=== PATIENT | male | born 1940 | race Caucasian/White ===

== ENCOUNTER 2019-04-13 06:31 | Day surgery (SDC) | payer OTHER, SELFPAY ==
[2019-04-08 14:34] VITALS: BMI 25.0
[2019-04-13] VITALS (12 sets, daily range): BP systolic 91–125; BP diastolic 51–81; PULSE 60–63; RESP 10–19; TEMP 35.9–36.7; O2SAT 94–99; BMI 25.0
[2019-04-13] MEDS: LACTATED RINGERS 1,000 ML 42 ML IV (07:29)
[2019-04-13] MEDS: ACETAMINOPHEN 325 MG TABLET 975 MG PO (07:37)
[2019-04-13] MEDS: GABAPENTIN 300 MG CAPSULE PO (07:38)
--- NOTE | 2019-04-13 07:50 | PM.HP.1 ---
History of Present Illness History of Present Illness Date Patient Seen: 04/13/19 Time Patient Seen: 07:50 Chief complaint: [id number] Narrative: Pt seen and examined unchanged since recent clinic note Cleared by cards EF improved to 50% Tolerates daily walk of several miles, brisk plan for lap B inguinal hernia repair Patient History Medical History (Updated 04/08/19 @ 14:38 by Celia Galdamez RN) CHF (congestive heart failure) (Chronic) Former smoker (Acute) HLD (hyperlipidemia) (Acute) HTN (hypertension) (Acute) Shortness of breath (Acute) Sleep apnea (Acute) Surgical History (Updated 04/08/19 @ 14:38 by Celia Galdamez RN) Hx of tonsillectomy (Acute) 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) Family History (Updated 12/21/18 @ 11:42 by Hawa Pandey RN) Mother Stroke Grandmother Heart disease Grandfather Heart disease Social History (Updated 12/21/18 @ 11:44 by Hawa Pandey RN) marital status: household members: spouse occupational status: previously employed Smoking Status: Former smoker alcohol intake: former substance use type: does not use Family & Social History Family History (Updated 12/21/18 @ 11:42 by Hawa Pandey RN) Mother Stroke Grandmother Heart disease Grandfather Heart disease Social History: household members spouse Tobacco & Substance use: Tobacco type cigarettes,pipe Smoking Status Former smoker alcohol intake former Substance Use Type does not use Meds Home Medications and Allergies Home Medications Medication Instructions Recorded Confirmed Type aspirin 81 mg PO QDAY #0 05/13/17 04/08/19 History atorvastatin 40 mg PO QDAY #0 05/13/17 04/08/19 History cyanocobalamin (vitamin B-12) 1,000 mcg PO QDAY #0 05/13/17 04/08/19 History multivitamin [Multiple Vitamins] 1 tab PO QDAY #0 05/13/17 04/08/19 History eplerenone 25 mg tablet 25 mg PO DAILY 12/21/18 04/08/19 History metoprolol succinate 25 mg PO DAILY 04/08/19 04/13/19 History sacubitril-valsartan [Entresto] 1 tab PO BID 04/08/19 04/08/19 History Allergies Allergy/AdvReac Type Severity Reaction Status Date / Time propofol [PROPOFOL] Allergy Unknown Dysphagia Unverified 04/13/19 07:34 spironolactone Allergy Unknown Itching Verified 04/13/19 07:34 Sulfa (Sulfonamide Allergy Unknown Hives Unverified 04/13/19 07:34 Antibiotics) [SULFA (SULFONAMIDE ANTIBIOTICS)] Exam Vital Signs (past 8 hours): - 04/13/19 07:10 Temperature 97.4 F L Pulse Rate 60 Respiratory Rate 16 Blood Pressure 125/81 Pulse Oximetry 98 Oxygen Delivery Method Room Air
[2019-04-13] MEDS: CEFAZOLIN 2 GM/100 ML FROZ.PIGGY IV (08:00)
--- NOTE | 2019-04-13 08:31 | SUR.OPER ---
Supine on padded OR bed with pink pad, head on pillow, arm padded and tucked at side, legs uncrossed, safety belt at thigh, tape over blanket over lower legs .
[2019-04-13] MEDS: BUPIVACAINE 0.25% W/ EPI 30 ML VIAL INJ (08:38)
--- NOTE | 2019-04-13 10:28 | PM.OP.1 ---
Operative Date/Time/Diagnoses Date of procedure: 04/13/19 Time of procedure: 10:28 Pre-op diagnosis: bilateral inguinal hernias Post-op diagnosis: other (Bilateral indirect inguinal hernias) Procedure & Clinicians Procedure: Bilateral laproscopic inguinal hernia repair with mesh (TEP) Same procedure as scheduled: Yes Indications: 78-year-old man with symptomatic bilateral inguinal hernias Surgeon: Sung Torres Click Yes if Unassisted: Yes Anesthesia Type: General Operative Notes Findings: Bilateral indirect hernias Closure Type: primary Specimen(s): none sent Prosthetic devices, grafts, tissues, transplants, or devices: [employer]rica 3DMax regular weight polypropylene size large mesh -right and left respectively Estimated Blood Loss (mL): 10 Procedure in detail: Patient was brought to the operating room he was intubated without incident he was prepped and draped in usual sterile fashion time-out was completed. A curvilinear incision was carried through the inferior umbilical crown through the skin and subcutaneous tissues the fatty alveolar tissue was swept off the rectus sheath on the right side. Just to the right of midline a vertically oriented incision was carried through the anterior rectus sheath. The underlying rectus abdominis muscles were identified and swept out laterally using an S retractor -a finger was then inserted into the retro rectus space developing a pocket deep to the rectus muscle but superficial to the posterior rectus sheath. Into the space a 12 mm balloon tipped port was placed. And the space was insufflated. Utilizing a laparoscoped a pocket was developed progressing inferiorly to the pubic symphysis. Two 5 mm ports were then placed approximately 2 fingerbreadths apart equal distance between the pubic symphysis and the umbilicus. These were placed into the developed space. Using laparoscopic graspers preperitoneal space was then opened more significantly. I 1st started on the right side in the foreground opening up the more superior aspect of this space to allow for greater visualization I then proceeded to open up the inferior aspect of beginning along Seth's ligaments and progressing laterally. I then moved for laterally and opened up the space between the anterior superior iliac spine and the cord structures. The anterior medial hernia sac was identified and reduced being careful to preserve the vas deferens as well as the cord structures. The peritoneal reflection was then brought posterior into the field stripping it off the underlying tissue once the edge of the peritoneal reflection was well below the dissection plane I felt satisfied. The entire myopectineal orifice at this point was visualized. There was no direct or femoral hernia. Hemostasis was excellent. I then directed my attention to the left side and identical manner opened up the preperitoneal space. Again the hernia was indirect and reduced. With both spaces now widely opened and the peritoneal reflection well posterior mesh was brought into the space. Beginning with the left side a Bard 3D max size large polypropylene hernia mesh was rolled and then inserted via the 12 mm umbilical port. this was then unrolled internally and opened the medial aspect was oriented to the midline. The mesh was placed so as to well cover the internal ring was well as cover the site where a direct hernia could develop in the future. The medial aspect of the mesh was tacked using absorbable tacks to Seth's ligament. The right-sided hernia mesh was then brought into the space in an identical fashion it was opened in similarly tacked. Both sides were then carefully inspected to ensure that the mesh was not unduly wrinkled and well placed. At this point laparoscopic graspers were utilized to hold the lateral tails in place and then the space was deinsufflated. Ports were then withdrawn -the umbilical anterior fascial defect was then closed using a simple continual running 0 Vicryl suture. Skin was closed using monofilament absorbable suture in a subcuticular fashion. Skin glue was applied Patient was extubated and brought to PACU without incident Complications: none Post-operative Condition: stable Disposition: PACU Plan for aftercare: PACU then
== END 2019-04-13 11:57 | disposition home or self-care (01) ==
PROVIDERS: PCP Family Medicine; Visit Provider Surgery
PROC: 0YQ64ZZ Repair Left Inguinal Region, Percutaneous Endoscopic Approach (ICD-10-PCS; CPT 49650; principal; 2019-04-13 07:45)
DX: K40.20 Bilateral inguinal hernia, without obstruction or gangrene, not specified as recurrent (principal); I50.9 Heart failure, unspecified; Z87.891 Personal history of nicotine dependence; E78.5 Hyperlipidemia, unspecified; I10 Essential (primary) hypertension; G47.30 Sleep apnea, unspecified
CPT/HCPCS: 49650; C1781; J0330; J0690; J1100; J1885; J2405; J3010

== ENCOUNTER → 2019-08-23 10:27 | Outpatient (CLI) | payer OTHER, SELFPAY ==
--- NOTE | 2019-08-23 | DI.RAD.S_ITS ---
PROCEDURE: XR CHEST 2V INDICATIONS: COUGH/CHF TECHNIQUE: 2 views of the chest were acquired. COMPARISON: None. FINDINGS: Surgical changes and devices: Dual-lead cardiac pacer. Lungs and pleura: Lungs are clear. No pleural effusions or pneumothorax. Mediastinum: Mediastinal contours are normal. Heart size is normal. Bones and chest wall: No suspicious bony abnormalities. Soft tissues appear unremarkable. IMPRESSION: Scattered subsegmental atelectasis and/or scarring. No focal consolidation. by: Isaac Perry M.D. on 08/23/2019 at 11:19 Approved by: Isaac Perry M.D. on 08/23/2019 at 11:20
== END ==
PROVIDERS: PCP Family Medicine; Visit Provider Family Medicine
DX: R05 Cough; I50.22 Chronic systolic (congestive) heart failure; Z95.0 Presence of cardiac pacemaker
CPT/HCPCS: 71046

== ENCOUNTER 2020-09-19 19:16 | Emergency (ER) | payer OTHER, SELFPAY ==
[2020-09-19 19:26] VITALS: BP 159/102; PULSE 70; RESP 20; TEMP 36.4; O2SAT 98; BMI 25.0
[2020-09-19 19:36] VITALS: BP 143/87; PULSE 61; RESP 20; O2SAT 99
[2020-09-19 19:43] LABS: Add Manual Diff / Slide Review NO; Basophils Absolute Auto 100 /uL (0-100); Basophils Percent Auto 1.2 % (0-2); Eosinophils Absolute Auto 300 /uL (0-450); Eosinophils Percent Auto 3.5 % (2-4); Hematocrit 45.5 % (41-53); Hemoglobin 15.7 g/dL (13.5-17.5); Lymphocytes Absolute Auto 2700 /uL (1100-4500); Lymphocytes Percent Auto 30.1 % (25-40); Mean Corpuscular HGB Conc 34.4 % (30-36); Mean Corpuscular Hemoglobin 32.5 PG (26-34); Mean Corpuscular Volume 94.3 fL (80-100); Monocytes Absolute Auto 900 /uL (0-900); Neutrophils Absolute Auto 4900 /uL (1500-7000); Neutrophils Percent Auto 55.2 % (50-75); Platelet Count 176 X10^3/uL (150-400); Red Blood Cell Count 4.82 X10^6/uL (4.5-5.9); Red Cell Distribution Width 13.2 % (11.6-14.8); White Blood Cell Count 8.9 X10^3/uL (4.5-11.0)
--- NOTE | 2020-09-19 19:46 | DI.CT.S_ITS ---
PROCEDURE: CT HEAD/BRAIN WO CON INDICATIONS: visual disturbances, symptoms now resolved. TECHNIQUE: Noncontrast 4.5 mm thick angled axial sections acquired from the foramen magnum to the vertex, with coronal and sagittal reformats. For radiation dose reduction, the following was used: automated exposure control, adjustment of mA and/or kV according to patient size. COMPARISON: None. FINDINGS: Image quality: Excellent. CSF spaces: Basal cisterns are patent. No extra-axial fluid collections. The ventricles are symmetric in size and shape. Brain: No acute intracranial hemorrhage or mass effect. There is cerebral volume loss for age, with resultant ventricular and sulcal prominence. There are periventricular and deep white matter chronic small vessel ischemic changes. There is intracranial internal carotid artery atherosclerosis. Skull and face: Calvarium and visualized facial bones appear intact, without suspicious lesions. Sinuses: Visualized sinuses and mastoids are clear. IMPRESSION: No acute intracranial abnormality. Mild chronic age related cerebral atrophy and chronic microvascular ischemic changes. Dictated by: Savage Wright M.D. on 09/19/2020 at 20:31 Approved by: Savage Wright M.D. on 09/19/2020 at 20:33
[2020-09-19 19:48] LABS: Prothrombin Time 11.3 SECONDS (10.1-12.7)
[2020-09-19 19:50] LABS: PTT Partial Thromboplastin Tim 30 SECONDS (26.4-36.2)
[2020-09-19 19:55] LABS: Alanine Aminotransferase 29 IU/L (<50); Albumin 4.3 g/dL (3.5-5.0); Albumin Globulin Ratio 1.4 (1.0-2.8); Alkaline Phosphatase 75 U/L (38-126); Aspartate Aminotransferase 30 IU/L (17-59); BUN Creatinine Ratio 28.9 (6-22); Bilirubin Total 1.3 mg/dL (0.2-1.3); Blood Urea Nitrogen 22 mg/dL (9-20); Calcium 9.4 mg/dL (8.4-10.2); Carbon Dioxide 28 mmol/L (22-32); Chloride 106 mmol/L (98-107); Creatine Kinase 143 U/L (55-170); Estimated Glomerular Filt Rate > 60.0 mL/min (>60); Glucose 113 mg/dL (80-110); HEMOLYSIS 22 (0-50); Sodium 138 mmol/L (137-145); Total Protein 7.3 g/dL (6.3-8.2)
[2020-09-19 20:06] LABS: Troponin I 0.017 ng/mL (0.01-0.034)
[2020-09-19 20:10] LABS: CKMB % Relative Index 2.8 % (1.5-5.0); Creatine Kinase MB 3.94 ng/mL (<2.37)
--- NOTE | 2020-09-19 20:56 | ED.NEUROSD ---
HPI - Neuro Symptoms/Deficit General Chief Complaint: Neuro Symptoms/Deficit Stated Complaint: Visual disturbance Time Seen by Provider: 09/19/20 20:19 Source: patient and family Mode of arrival: Ambulatory Limitations: no limitations History of Present Illness HPI Narrative: Patient is a 80-year-old male who arrived to the emergency department under the recommendation of his Cardiology office for evaluation of symptoms where he states that last evening for approximately 5 minutes he had visual disturbances. He described it as when he was trying to look at an object he thought that the object was moving around. He was not seeing double. He was not having any other associated symptoms. Once the symptoms resolved he was back to his baseline health status. He then stated that overnight he woke up and had the symptoms again but this time it lasted approximately 2 hours and then completely resolved. Again he had no other associated symptoms. He states he does wake up multiple times during the night and he thought that is why he woke up not necessarily because of the vision issues. He has never had anything like this in the past. 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 He is currently asymptomatic. On Anticoagulants: No (ASA 81mg/daily) Related Data Home Medications Medication Instructions Recorded Confirmed aspirin 81 mg PO QDAY #0 05/13/17 04/18/19 atorvastatin 40 mg PO QDAY #0 05/13/17 04/18/19 cyanocobalamin (vitamin B-12) 1,000 mcg PO QDAY #0 05/13/17 04/18/19 multivitamin [Multiple Vitamins] 1 tab PO QDAY #0 05/13/17 04/18/19 eplerenone 25 mg tablet 25 mg PO DAILY 12/21/18 04/18/19 Entresto 1 tab PO BID 04/08/19 04/18/19 metoprolol succinate 25 mg PO DAILY 04/08/19 04/18/19 Previous Rx's Medication Instructions Recorded acetaminophen 650 mg PO Q6H #30 cap 04/13/19 oxycodone See Rx Instructions .ROUTE 04/13/19 .COMPLEX PRN #10 tab polyethylene glycol 3350 [Miralax] 17 gram PO DAILY #10 each 04/13/19 Allergies Allergy/AdvReac Type Severity Reaction Status Date / Time propofol [PROPOFOL] Allergy Unknown Dysphagia Verified 09/19/20 19:33 spironolactone Allergy Unknown Itching Verified 09/19/20 19:33 Sulfa (Sulfonamide Allergy Unknown Hives Verified 09/19/20 19:33 Antibiotics) [SULFA (SULFONAMIDE ANTIBIOTICS)] Review of Systems Constitutional Constitutional: Denies chills, Denies fatigue, Denies fever(s), Denies headache(s), Denies malaise and Denies weakness Eyes Eyes: Denies blurry vision, Reports change in vision, Denies diplopia, Denies floaters, Denies irritation, Denies itchy eyes, Denies loss of vision and Reports other visual disturbances ENT Ears, Nose, Mouth, and Throat: Denies vertigo, Denies dizziness, Denies headache(s), Denies disequilibrium and Denies sinus pressure Cardiovascular Cardiovascular: Denies chest pain, Denies rapid heart rate, Denies lightheadedness and Denies dyspnea Respiratory Respiratory: Denies cough and Denies dyspnea Gastrointestinal Gastrointestinal: Denies abdominal pain, Denies nausea and Denies vomiting Genitourinary Genitourinary: Denies dysuria Genitourinary: Denies dysuria Musculoskeletal Musculoskeletal: Denies arthralgias, Denies myalgias and Denies tingling Integumentary/Breasts Skin/Breast: Denies lesions and Denies rash Neurologic Neurologic: Denies abnormal movements, Denies abnormal speech, Denies behavioral changes, Denies confusion, Denies vertigo, Denies dizziness, Denies headache(s), Denies loss of vision, Reports other visual disturbances, Denies seizure-like activity, Denies tingling, Denies disequilibrium and Denies weakness Psychiatric Psychiatric: Denies behavioral changes and Denies confusion Endocrine Endocrine: Denies fatigue Hematologic/Lymphatic On Anticoagulants: No (ASA 81mg/daily) Allergic/Immunologic Allergic/Immunologic: Denies urticaria and Denies itchy eyes Patient History Medical History CHF (congestive heart failure) Former smoker HLD (hyperlipidemia) HTN (hypertension) Shortness of breath Sleep apnea Surgical History (Updated 04/08/19 @ 14:38 by Celia Galdamez RN) Hx of tonsillectomy ICD (implantable cardioverter-defibrillator) battery depletion (~2017) Family History (Updated 12/21/18 @ 11:42 by Hawa Pandey RN) Mother Stroke Grandmother Heart disease Grandfather Heart disease Social History marital status: household members: spouse occupational status: previously employed Smoking Status: Former smoker alcohol intake: former substance use type: does not use Smoking Status: Former smoker alcohol intake frequency: 0-2 drinks per day Substance Use Type: does not use Exam Initial Vital Signs Initial Vital Signs: Vital Signs Temperature 97.5 F L 09/19/20 19:26 Pulse Rate 70 09/19/20 19:26 Respiratory Rate 20 09/19/20 19:26 Blood Pressure 159/102 H 09/19/20 19:26 Pulse Oximetry 98 09/19/20 19:26 Const General: cooperative, comfortable, well developed and well groomed Limitations: mental status not altered HENMT Head: normal to inspection and normocephalic Eyes General: appearance normal, both eyes and all related structures Eyelids: eyelids normal Conjunctivae: conjunctivae normal Pupils: PERRL EOM: EOM intact bilaterally Resp Effort & Inspection: normal respiratory effort Auscultation: clear to auscultation bilaterally Cardio Rate: regular rate Rhythm: regular rhythm GI Inspection: non-distended Palpation: soft Skin Lesions: no lesions Rashes: no rashes Neuro General: patient alert and patient awake Cognition: normal cognition Speech: speech normal Extrem General: capillary refill normal Psych Appearance: grossly normal and well kempt Scores GCS Dionna coma scale eye opening: Spontaneous [place] coma scale verbal response: Orientated [place] coma scale motor response: Obey commands [place] coma scale total score: 15 NIH Stroke Scale Level of Conciousness: Alert, keenly responsive Ask month/age: Answers both questions correctly. Open/close eyes, close hand: Performs both tasks correctly Best gaze horizontal: Normal Visual patel: No visual loss Facial palsy: Normal symetrical movement Left arm drift: No drift for full 10 sec Right arm drift: No drift for full 10 sec Left leg drift: No drift for full 5 sec Right leg drift: No drift for full 5 sec Limb ataxia: Absent Sensory on face/arms/legs: Normal, no sensory loss Best language: No aphasia, normal Dysarthria: Normal Extinction or inattention: No abnormality Total NIH Stroke scale score: 0 Course Orders Ordered: ED Orders 09/19/20 19:30 Complete Blood Count AUTO DIFF Stat Comprehensive Metabolic Panel Stat Partial Thromboplastin Time Stat Prothrombin Time INR Stat Troponin & CK Cardiac Panel Stat 09/19/20 19:32 EKG-12 Lead Stat 09/19/20 19:46 CT head/brain wo con Stat Vital Signs Vital signs: Vital Signs - 8 hr 09/19/20 19:26 09/19/20 19:36 Temperature 97.5 F L Pulse Rate 70 61 Respiratory Rate 20 20 Blood Pressure 159/102 H 143/87 H Pulse Oximetry 98 99 MDM - Neuro Symptoms/Deficit Medical Records Attestation: I reviewed the patient's medical records. Lab Data Attestation: I reviewed the patient's lab results. Result diagrams: 09/19/20 19:30 09/19/20 19:30 Labs: Lab Results 09/19/20 09/19/20 09/19/20 Range/Units 19:30 19:30 19:30 WBC 8.9 (4.5-11.0) X10^3/uL RBC 4.82 (4.5-5.9) X10^6/uL Hgb 15.7 (13.5-17.5) g/dL Hct 45.5 (41-53) % MCV 94.3 (80-100) fL MCH 32.5 (26-34) PG MCHC 34.4 (30-36) % RDW 13.2 (11.6-14.8) % Plt Count 176 (150-400) X10^3/uL Neut % (Auto) 55.2 (50-75) % Lymph % (Auto) 30.1 (25-40) % Dickenson % (Auto) 10.0 (3-14) % Eos % (Auto) 3.5 (2-4) % Baso % (Auto) 1.2 (0-2) % Neut # (Auto) 4900 (4259-8978) /uL Lymph # (Auto) 2700 (3582-6293) /uL Dickenson # (Auto) 900 (0-900) /uL Eos # (Auto) 300 (0-450) /uL Baso # (Auto) 100 (0-100) /uL PT 11.3 (10.1-12.7) SECONDS INR 1.0 (0.9-1.3) APTT 30 (26.4-36.2) SECONDS Sodium 138 (137-145) mmol/L Potassium 4.0 (3.4-5.1) mmol/L Chloride 106 (98-107) mmol/L Carbon Dioxide 28 (22-32) mmol/L BUN 22 H (9-20) mg/dL Creatinine 0.76 (0.66-1.25) mg/dL Estimated GFR > 60.0 (>60) mL/min BUN/Creatinine Ratio 28.9 H (6-22) Glucose 113 H (80-110) mg/dL Calcium 9.4 (8.4-10.2) mg/dL Total Bilirubin 1.3 (0.2-1.3) mg/dL AST 30 (17-59) IU/L ALT 29 (<50) IU/L Alkaline Phosphatase 75 (38-126) U/L Total Creatine Kinase 143 (55-170) U/L CK-MB (CK-2) 3.94 H (<2.37) ng/mL CK-MB (CK-2) Rel Index 2.8 (1.5-5.0) % Troponin I 0.017 (0.01-0.034) ng/mL Total Protein 7.3 (6.3-8.2) g/dL Albumin 4.3 (3.5-5.0) g/dL Globulin 3.0 (1.7-4.1) g/dL Albumin/Globulin Ratio 1.4 (1.0-2.8) Imaging Data CT scan - head: Radiologist's Impression: [address] [id number] Scan ReportSigned Patient: Naren Rodríguez R#: [id number]: 1940cct:[id number]/Sex: 80 / MDate of Service: 09/19/20Loc: EDAccession Number: [id number] Procedure: CT head/brain wo con Ordering Provider: Jonny Gaviria D.O. PROCEDURE: CT HEAD/BRAIN WO CON INDICATIONS: visual disturbances, symptoms now resolved. TECHNIQUE: Noncontrast 4.5 mm thick angled axial sections acquired from the foramen magnum to the vertex, with coronal and sagittal reformats. For radiation dose reduction, the following was used: automated exposure control, adjustment of mA and/or kV according to patient size. COMPARISON: None. FINDINGS: Image quality: Excellent. CSF spaces: Basal cisterns are patent. No extra-axial fluid collections. The ventricles are symmetric in size and shape. Brain: No acute intracranial hemorrhage or mass effect. There is cerebral volume loss for age, with resultant ventricular and sulcal prominence. There are periventricular and deep white matter chronic small vessel ischemic changes. There is intracranial internal carotid artery atherosclerosis. Skull and face: Calvarium and visualized facial bones appear intact, without suspicious lesions. Sinuses: Visualized sinuses and mastoids are clear. IMPRESSION: No acute intracranial abnormality. Mild chronic age related cerebral atrophy and chronic microvascular ischemic changes. Dictated by: Savage Wright M.D. on 09/19/2020 at 20:31 Approved by: Savage Wright M.D. on 09/19/2020 at 20:33 ECG Data Attestation: I personally reviewed and interpreted this ECG as follows: Prior ECG tracings: not available for review Interpretation: Atrially paced Ventricular rate is 63 Left axis deviation One PVC No ST T wave changes MDM Narrative Medical decision making narrative: Patient is asymptomatic. His head CT is unremarkable. He is atrially paced on his EKG without any other signs of ischemia. Labs are unremarkable. His ocular exam here in the emergency department is unremarkable. He has no findings consistent with a extra ocular muscle palsy/cranial nerve palsy. Low suspicion for CVA given his history and physical. Did consider TIA however it has not been greater than 12 hours since he has had any symptoms and his only symptoms that he describes are vision related. He does wear glasses he states the last eye exam was approximately 1 year ago. I discussed all these findings with the patient. Will discharge patient home and having contact his primary doctor to discuss any further workup if needed. He was given return precautions and follow-up instructions. He expressed understanding and agreement. Discharge Plan Departure Patient Disposition: Home Clinical Impression: Subjective vision disturbance Activity Restrictions/Additional Instructions: Your labs and head CT today in the emergency department showed no signs of any emergent issues. I do recommend that you contact your primary provider for follow-up. Also recommend that you schedule a eye exam. Continue all of your medications as directed. Return to the emergency department for any new or worsening symptoms Prescriptions: No Action atorvastatin 40 MG tablet 40 mg PO QDAY Qty: 0 RF: 0 multivitamin [Multiple Vitamins] 1 EACH tablet 1 tab PO QDAY Qty: 0 RF: 0 cyanocobalamin (vitamin B-12) 1,000 MCG tablet extended release 1,000 mcg PO QDAY Qty: 0 RF: 0 aspirin 81 MG tablet,delayed release (DR/EC) 81 mg PO QDAY Qty: 0 RF: 0 eplerenone 25 mg tablet 25 mg PO DAILY RF: 0 metoprolol succinate 25 mg Tablet Extended Release 24 Hr 25 mg PO DAILY RF: 0 Entresto 97-103 mg Tablet 1 tab PO BID RF: 0 acetaminophen 325 mg capsule 650 mg PO Q6H Qty: 30 RF: 0 oxycodone 5 mg tablet See Rx Instructions .ROUTE .COMPLEX PRN (Reason: pain) Qty: 10 RF: 0 polyethylene glycol 3350 [Miralax] 17 gram powder in packet 17 gram PO DAILY Qty: 10 RF: 0 Referrals: Emily Durham MD [Primary Care Provider] -
== END 2020-09-19 21:05 | disposition home or self-care (01) ==
PROVIDERS: Emergency Provider Emergency Medicine; PCP Family Medicine
DX: H53.10 Unspecified subjective visual disturbances (principal); I50.9 Heart failure, unspecified; E78.5 Hyperlipidemia, unspecified; I10 Essential (primary) hypertension
CPT/HCPCS: 36415; 70450; 80053; 82550; 82553; 84484; 85025; 85610; 85730; 93005; 93010; 99284

== ENCOUNTER → 2021-03-06 12:47 | Outpatient (CLI) | payer OTHER, SELFPAY ==
[2021-03-06 20:04] LABS: Alanine Aminotransferase 29 IU/L (<50); Albumin 4.2 g/dL (3.5-5.0); Albumin Globulin Ratio 1.6 (1.0-2.8); Alkaline Phosphatase 72 U/L (38-126); Aspartate Aminotransferase 32 IU/L (17-59); BUN Creatinine Ratio 32.1 (6-22); Bilirubin Total 1.9 mg/dL (0.2-1.3); Blood Urea Nitrogen 27 mg/dL (9-20); Carbon Dioxide 26 mmol/L (22-32); Chloride 108 mmol/L (98-107); Cholesterol 134 mg/dL (140-199); Estimated Glomerular Filt Rate > 60.0 mL/min (>60); Globulin 2.6 g/dL (1.7-4.1); Glucose 105 mg/dL (80-110); HDL Cholesterol 58 mg/dL (40-60); HEMOLYSIS < 15 (0-50); LDL Cholesterol Calculated 59 mg/dL (<100); Potassium 4.6 mmol/L (3.4-5.1); Sodium 139 mmol/L (137-145); Total Protein 6.8 g/dL (6.3-8.2); Triglycerides 86 mg/dL (35-150)
== END ==
PROVIDERS: PCP Family Medicine; Visit Provider Family Medicine
DX: I10 Essential (primary) hypertension (principal); E78.5 Hyperlipidemia, unspecified
CPT/HCPCS: 80053; 80061

== ENCOUNTER → 2021-12-25 08:42 | Outpatient (CLI) | payer OTHER, SELFPAY ==
[2021-12-25 19:18] LABS: Add Manual Diff / Slide Review NO; Basophils Absolute Auto 100 /uL (0-100); Basophils Percent Auto 1.3 % (0-2); Eosinophils Absolute Auto 200 /uL (0-450); Eosinophils Percent Auto 3.2 % (2-4); Hematocrit 41.6 % (41-53); Hemoglobin 14.6 g/dL (13.5-17.5); Lymphocytes Absolute Auto 1200 /uL (1100-4500); Lymphocytes Percent Auto 19.6 % (25-40); Mean Corpuscular Hemoglobin 33.1 PG (26-34); Mean Corpuscular Volume 94.5 fL (80-100); Monocytes Absolute Auto 600 /uL (0-900); Neutrophils Absolute Auto 4100 /uL (1500-7000); Neutrophils Percent Auto 65.9 % (50-75); Platelet Count 158 X10^3/uL (150-400); Red Cell Distribution Width 13.4 % (11.6-14.8); White Blood Cell Count 6.1 X10^3/uL (4.5-11.0)
[2021-12-25 19:25] LABS: Alanine Aminotransferase 37 IU/L (<50); Albumin Globulin Ratio 1.5 (1.0-2.8); Alkaline Phosphatase 68 U/L (38-126); Aspartate Aminotransferase 40 IU/L (17-59); Bilirubin Total 1.9 mg/dL (0.2-1.3); Blood Urea Nitrogen 32 mg/dL (9-20); Calcium 9.1 mg/dL (8.4-10.2); Carbon Dioxide 23 mmol/L (22-32); Chloride 107 mmol/L (98-107); Cholesterol 120 mg/dL (140-199); Estimated Glomerular Filt Rate > 60 mL/min (>60); Globulin 2.6 g/dL (1.7-4.1); Glucose 108 mg/dL (80-110); HDL Cholesterol 55 mg/dL (40-60); HEMOLYSIS < 15 (0-50); LDL Cholesterol Calculated 54 mg/dL (<100); Potassium 4.4 mmol/L (3.4-5.1); Sodium 138 mmol/L (137-145); Total Protein 6.6 g/dL (6.3-8.2); Triglycerides 56 mg/dL (35-150)
[2021-12-25 19:34] LABS: NT-proBNP (BNP-Adult 18+) 233 pg/mL (<450)
== END ==
PROVIDERS: PCP Family Medicine; Visit Provider Family Medicine
DX: E78.5 Hyperlipidemia, unspecified (principal); G47.33 Obstructive sleep apnea (adult) (pediatric); I25.10 Atherosclerotic heart disease of native coronary artery without angina pectoris; I42.0 Dilated cardiomyopathy; I50.22 Chronic systolic (congestive) heart failure; R00.1 Bradycardia, unspecified; Z87.898 Personal history of other specified conditions; Z95.810 Presence of automatic (implantable) cardiac defibrillator; Z99.89 Dependence on other enabling machines and devices
CPT/HCPCS: 80053; 80061; 83880; 85025

== ENCOUNTER → 2022-04-10 13:48 | Outpatient (CLI) | payer OTHER, SELFPAY ==
[2022-04-10 20:22] LABS: BUN Creatinine Ratio 30.4 (6-22); Blood Urea Nitrogen 28 mg/dL (9-20); Carbon Dioxide 25 mmol/L (22-32); Chloride 105 mmol/L (98-107); Estimated Glomerular Filt Rate > 60 mL/min (>60); Glucose 86 mg/dL (80-110); HEMOLYSIS < 15 (0-50); Potassium 4.1 mmol/L (3.4-5.1); Sodium 137 mmol/L (137-145)
== END ==
PROVIDERS: PCP Family Medicine; Visit Provider Family Medicine
DX: I10 Essential (primary) hypertension (principal); R39.9 Unspecified symptoms and signs involving the genitourinary system; R79.9 Abnormal finding of blood chemistry, unspecified; Z12.5 Encounter for screening for malignant neoplasm of prostate
CPT/HCPCS: 80048; G0103

== ENCOUNTER → 2022-08-06 13:33 | Outpatient (CLI) | payer OTHER, SELFPAY ==
[2022-08-06 20:04] LABS: BUN Creatinine Ratio 31.2 (6-22); Blood Urea Nitrogen 24 mg/dL (9-20); Calcium 9.2 mg/dL (8.4-10.2); Carbon Dioxide 28 mmol/L (22-32); Chloride 103 mmol/L (98-107); Estimated Glomerular Filt Rate > 60 mL/min (>60); Glucose 120 mg/dL (80-110); HEMOLYSIS < 15 (0-50); Potassium 4.2 mmol/L (3.4-5.1); Sodium 138 mmol/L (137-145)
== END ==
PROVIDERS: PCP Family Medicine; Visit Provider Nurse Practitioner
DX: I50.22 Chronic systolic (congestive) heart failure (principal)
CPT/HCPCS: 80048

== ENCOUNTER 2023-03-10 10:02 | Day surgery (SDC) | payer OTHER, SELFPAY ==
[2023-03-10 10:23] VITALS: BMI 24.4
[2023-03-10 10:28] VITALS: BP 142/89; PULSE 60; RESP 12; TEMP 36.1; O2SAT 100
[2023-03-10] MEDS: LACTATED RINGERS 1,000 ML 200 ML IV (10:45)
--- NOTE | 2023-03-10 11:10 | PM.PREOP ---
Pre-operative Note Interval Note History & Physical reviewed/Exam performed by Physician: Yes Changes to H&P: No
--- NOTE | 2023-03-10 11:14 | PM.HP.1 ---
History of Present Illness History of Present Illness Date Patient Seen: 03/10/23 Time Patient Seen: 11:14 Chief complaint: Colonoscopy Narrative: 82-year-old man here for diagnostic colonoscopy. Please refer to the H and P from December 2022 for further detail. He reports that in the three-month interval he is had 1 episode of bright red blood per rectum. [facility] Medical History CHF (congestive heart failure) Former smoker HLD (hyperlipidemia) HTN (hypertension) Shortness of breath Sleep apnea Surgical History Hx of tonsillectomy ICD (implantable cardioverter-defibrillator) battery depletion (~2017) Family History Mother Stroke Grandmother Heart disease Grandfather Heart disease Social History marital status: household members: spouse lives independently: Yes occupational status: previously employed Smoking Status: Former smoker alcohol intake: former substance use type: does not use Meds Home Medications and Allergies Home Medications Medication Instructions Recorded Confirmed Type aspirin 81 mg tablet,delayed 81 mg PO QDAY ##0 05/13/17 03/10/23 History release cyanocobalamin (vitamin B-12) 1,000 mcg PO QDAY ##0 05/13/17 03/10/23 History 1,000 mcg tablet,extended release multivitamin (Multiple Vitamins 1 tab PO QDAY ##0 05/13/17 03/10/23 History tablet) eplerenone 25 mg tablet 25 mg PO DAILY 12/21/18 03/10/23 History metoprolol succinate 25 mg 25 mg PO DAILY 04/08/19 03/10/23 History tablet,extended release 24 hr sacubitril 97 mg-valsartan 103 mg 1 tab PO BID 04/08/19 03/10/23 History tablet (Entresto) melatonin 1 mg tablet 2 mg PO BEDTIME PRN Insomnia 12/25/21 03/10/23 History rosuvastatin 20 mg tablet 20 mg PO DAILY 12/25/21 03/10/23 History sodium,potassium,mag sulfates 17.5 See Rx Instructions PO .COMPLEX 01/22/23 Rx gram-3.13 gram-1.6 gram oral soln #354 mL (Suprep Bowel Prep Kit) peg 3350-electrolytes 236 240 ml PO Q10M #4,000 mL 02/11/23 Rx gram-22.74 gram-6.74 gram-5.86 gram solution (Golytely) Allergies Allergy/AdvReac Type Severity Reaction Status Date / Time atorvastatin Allergy Mild HOARSE Verified 03/10/23 10:19 VOICE propofol [PROPOFOL] Allergy Unknown Dysphagia Verified 03/10/23 10:19 spironolactone Allergy Unknown Itching Verified 03/10/23 10:19 Sulfa (Sulfonamide Allergy Unknown Hives Verified 03/10/23 10:19 Antibiotics) [SULFA (SULFONAMIDE ANTIBIOTICS)] Exam Vital Signs (past 8 hours): - 03/10/23 10:28 Temperature 96.9 F L Pulse Rate 60 Respiratory Rate 12 Blood Pressure 142/89 H Pulse Oximetry 100 Narrative Exam Narrative: General elderly man alert oriented no acute distress Chest nonlabored respiration Abdomen soft nontender nondistended Assessment & Plan Assessment and plan (1) Rectal bleeding: Status: Acute Assessment & Plan narrative: 82-year-old man with rectal bleeding here for diagnostic colonoscopy. Risks, benefits, alternatives explained. Risks including but not limited to myocardial infarction, aspiration, bleeding, pain, missed lesion, incomplete examination, need for further radiographic studies, colonic perforation, and need for major abdominal surgery were discussed. All questions were answered to their satisfaction, and they are in agreement with this plan.
[2023-03-10 11:54] VITALS: BP 87/62; PULSE 60; RESP 12; TEMP 36.2; O2SAT 95
[2023-03-10 11:56] VITALS: BP 92/57; PULSE 60; RESP 13; O2SAT 95
--- NOTE | 2023-03-10 11:58 | P.OP.COLON_ITS ---
Operative Date/Time/Diagnoses Date of procedure: 03/10/23 Time of procedure: 11:58 Pre-op diagnosis: Rectal bleeding Post-op diagnosis: other (Internal hemorrhoids) Procedure & Clinicians Study performed: Colonoscopy Same procedure as scheduled: Yes Indications: 82-year-old man with intermittent rectal bleeding here for diagnostic colonoscop y Surgeon: Domingo Garcia Procedure Notes Procedure in detail: The history and physical was performed/updated and the patient is ASA class is 2. The procedure was discussed in detail with the patient. Potential risks complications including infection, bleeding, missed diagnosis, perforation, need for surgery, and were explained. Their questions were answered and informed consent was obtained. Patient was brought to the procedure room and placed standard monitoring equipment. The patient's vital signs were monitored continuously throughout the entire procedure. Prior to starting time-out was performed. The patient was placed in the left lateral recumbent position. Procedural sedation was administered by anesthesia. Examination began with a thorough inspection of the perianal area there was no evidence of fissures, fistulae, external hemorrhoids or cutaneous malignancy. The colonoscopy scope was then placed into the anal canal and was advanced to the cecum, which was identified by the ileocecal valve, the appendiceal orifice and the confluence of the taenia. The scope was then slowly withdrawn examining colon thoroughly in all directions, irrigating it of any residual stool. No masses or polyps. Quality of the prep was fair. Internal hemorrhoids on retroflexion within the rectum The patient tolerated the procedure well. They will be discharged once criteria are met. The withdrawl time was 8 minutes. Specimen(s): none sent Impression: Normal colonoscopy Post-procedure Recommendations: High fiber diet Plan for aftercare: No need for further colonoscopy unless symptomatic Disposition: same day surgery
[2023-03-10 12:01] VITALS: BP 98/57; PULSE 96; RESP 15; O2SAT 95
[2023-03-10 12:10] VITALS: BP 96/59; PULSE 60; RESP 15; TEMP 36.8; O2SAT 95
== END 2023-03-10 12:50 | disposition home or self-care (01) ==
PROVIDERS: PCP Family Medicine; Referring Provider Surgery; Visit Provider Surgery
PROC: 0DJD8ZZ Inspection of Lower Intestinal Tract, Via Natural or Artificial Opening Endoscopic (ICD-10-PCS; CPT 45378; principal; 2023-03-10 11:00)
DX: K62.5 Hemorrhage of anus and rectum (principal); K64.8 Other hemorrhoids
CPT/HCPCS: 45378; J2250; J3010

== ENCOUNTER → 2024-05-26 09:53 | Outpatient (CLI) | payer OTHER, SELFPAY ==
[2024-05-26 20:16] LABS: Add Manual Diff / Slide Review NO; Basophils Absolute Auto 100 /uL (0-100); Eosinophils Absolute Auto 200 /uL (0-450); Eosinophils Percent Auto 2.8 % (2-4); Hematocrit 44.3 % (41-53); Hemoglobin 15.2 g/dL (13.5-17.5); Lymphocytes Absolute Auto 1200 /uL (1100-4500); Lymphocytes Percent Auto 20.3 % (25-40); Mean Corpuscular HGB Conc 34.3 % (30-36); Mean Corpuscular Hemoglobin 33.8 PG (26-34); Mean Corpuscular Volume 98.5 fL (80-100); Monocytes Absolute Auto 600 /uL (0-900); Neutrophils Absolute Auto 3800 /uL (1500-7000); Neutrophils Percent Auto 65.9 % (50-75); Platelet Count 167 X10^3/uL (150-400); Red Blood Cell Count 4.49 X10^6/uL (4.5-5.9); Red Cell Distribution Width 13.5 % (11.6-14.8); White Blood Cell Count 5.8 X10^3/uL (4.5-11.0)
[2024-05-26 20:21] LABS: BUN Creatinine Ratio 27.5 (6-22); Blood Urea Nitrogen 22 mg/dL (9-20); Calcium 9.5 mg/dL (8.4-10.2); Carbon Dioxide 28 mmol/L (22-32); Chloride 105 mmol/L (98-107); Cholesterol 136 mg/dL (140-199); Estimated Glomerular Filt Rate > 60 mL/min (>60); Glucose 115 mg/dL (80-110); HDL Cholesterol 58 mg/dL (40-60); HEMOLYSIS < 15 (0-50); LDL Cholesterol Calculated 67 mg/dL (<100); Potassium 4.3 mmol/L (3.4-5.1); Sodium 137 mmol/L (137-145); Triglycerides 54 mg/dL (35-150)
[2024-05-26 20:32] LABS: NT-proBNP (BNP-Adult 18+) 352 pg/mL (<450)
[2024-05-26 20:56] LABS: TSH w/ Reflex to FT4 1.59 uIU/mL (0.47-4.68)
== END ==
PROVIDERS: PCP Family Medicine; Visit Provider Family Medicine
DX: E78.2 Mixed hyperlipidemia (principal); Z95.810 Presence of automatic (implantable) cardiac defibrillator; G47.33 Obstructive sleep apnea (adult) (pediatric); R00.1 Bradycardia, unspecified; Z99.89 Dependence on other enabling machines and devices; I50.22 Chronic systolic (congestive) heart failure; I42.0 Dilated cardiomyopathy; I25.10 Atherosclerotic heart disease of native coronary artery without angina pectoris; I11.0 Hypertensive heart disease with heart failure
CPT/HCPCS: 80048; 80061; 83880; 84443; 85025

== ENCOUNTER → 2024-07-20 11:29 | Outpatient (CLI) | payer OTHER, SELFPAY ==
[2024-07-20 12:38] LABS: BUN Creatinine Ratio 26.5 (6-22); Blood Urea Nitrogen 26 mg/dL (9-20); Calcium 9.7 mg/dL (8.4-10.2); Carbon Dioxide 26 mmol/L (22-32); Chloride 104 mmol/L (98-107); Estimated Glomerular Filt Rate > 60 mL/min (>60); Glucose 113 mg/dL (80-110); HEMOLYSIS < 15 (0-50); Potassium 4.5 mmol/L (3.4-5.1); Sodium 138 mmol/L (137-145)
== END ==
PROVIDERS: PCP Family Medicine; Referring Provider Nurse Practitioner; Visit Provider Nurse Practitioner
DX: I50.42 Chronic combined systolic (congestive) and diastolic (congestive) heart failure (principal)
CPT/HCPCS: 36415; 80048

== ENCOUNTER → 2025-03-13 09:15 | Outpatient (CLI) | payer OTHER, SELFPAY ==
[2025-03-13 09:52] LABS: Add Manual Diff / Slide Review NO; Hematocrit 44.4 % (41-53); Hemoglobin 15.6 g/dL (13.5-17.5); Lymphocytes Absolute Auto 1100 /uL (1100-4500); Mean Corpuscular HGB Conc 35.0 % (30-36); Mean Corpuscular Hemoglobin 34.1 PG (26-34); Mean Corpuscular Volume 97.4 fL (80-100); Platelet Count 164 X10^3/uL (150-400)
[2025-03-13 10:18] LABS: Alanine Aminotransferase 35 IU/L (<50); Albumin 4.1 g/dL (3.5-5.0); Albumin Globulin Ratio 1.6 (1.0-2.8); Alkaline Phosphatase 79 U/L (38-126); Blood Urea Nitrogen 27 mg/dL (9-20); Calcium 9.2 mg/dL (8.4-10.2); Carbon Dioxide 25 mmol/L (22-32); Chloride 103 mmol/L (98-107); Cholesterol 127 mg/dL (140-199); Estimated Glomerular Filt Rate > 60 mL/min (>60); Globulin 2.5 g/dL (1.7-4.1); Glucose 107 mg/dL (70-99); HDL Cholesterol 57 mg/dL (40-60); HEMOLYSIS < 15 (0-50); Magnesium 2.1 mg/dL (1.6-2.3); Potassium 4.5 mmol/L (3.4-5.1); Sodium 136 mmol/L (137-145); Total Protein 6.6 g/dL (6.3-8.2); Triglycerides 50 mg/dL (35-150)
[2025-03-13 10:44] LABS: TSH w/ Reflex to FT4 1.16 uIU/mL (0.47-4.68)
== END ==
PROVIDERS: PCP Family Medicine; Referring Provider Family Medicine; Visit Provider Family Medicine
DX: I42.0 Dilated cardiomyopathy (principal); I50.22 Chronic systolic (congestive) heart failure; I10 Essential (primary) hypertension; E78.2 Mixed hyperlipidemia
CPT/HCPCS: 36415; 80053; 80061; 83735; 84443; 85025